=== PATIENT | male | born 1950 | race Caucasian/White ===

== ENCOUNTER 2017-08-23 05:43 | Day surgery (SDC) | payer MEDICARE ==
[~2017-08-23] VITALS: Ht 175.3 cm; Wt 82.6 kg
[~2017-08-23 05:43] MED LIST: ALBUTEROL PUFF; ASPI-1012 PO; BUDE10.2 IH; CARV12.511 PO; FLUTICASONE NASAL; LISI-617 PO; LISI2.5T2 PO; NAPR-1023 PO; OMEP20CA10 PO; [UNRECOGNIZED DRUG - OTHER] PUFF; albuterol PUFF
[2017-08-23 06:15] VITALS: BP 105/60
[2017-08-23] MEDS ORDERED: SODIUM CHLORIDE 0.9% 1000ML 1,000 ML IV ONE (06:21)
[2017-08-23] MEDS ORDERED: PROPOFOL 10 MG/ML 20ML VIAL IV ONE (06:53)
[2017-08-23] MEDS ORDERED: GLYCOPYRROLATE 0.2 MG/ML 5 ML VIAL ONE (06:53)
[2017-08-23] MEDS ORDERED: FENTANYL CITRATE PF 50 MCG/1 ML 2ML VIAL ONE (06:53)
== END 2017-08-23 08:38 ==
LOC: DAH 05:43
PROVIDERS: ATTEND Internal Medicine Gastroenterology
DX: K51.90 Ulcerative colitis, unspecified, without complications (principal); Z98.0 Intestinal bypass and anastomosis status; K21.9 Gastro-esophageal reflux disease without esophagitis; E78.5 Hyperlipidemia, unspecified; I10 Essential (primary) hypertension; I25.10 Atherosclerotic heart disease of native coronary artery without angina pectoris; Z98.890 Other specified postprocedural states; Z80.0 Family history of malignant neoplasm of digestive organs; Z82.49 Family history of ischemic heart disease and other diseases of the circulatory system; F17.210 Nicotine dependence, cigarettes, uncomplicated; Z87.19 Personal history of other diseases of the digestive system
CPT/HCPCS: 45380; 88305; 93005; A4606; J2704; J3010; J3490; J7030

== ENCOUNTER → 2018-09-11 | Outpatient (CLI) | payer MEDICARE ==
[~2018-09-11] MED LIST changes: -LISI2.5T2 PO
== END | disposition home or self-care (01) ==
LOC: SHCH 07:55
PROVIDERS: ATTEND Internal Medicine Cardiovascular Disease
DX: I51.7 Cardiomegaly (principal); I35.8 Other nonrheumatic aortic valve disorders
CPT/HCPCS: 93306

== ENCOUNTER → 2018-10-21 | Outpatient (CLI) | payer MEDICARE ==
[~2018-10-21] VITALS: Ht 180.3 cm; Wt 83.9 kg
[~2018-10-21] MED LIST changes: +REGADENOSON 0.4 MG/5 ML PF SYG IVP SCH
== END | disposition home or self-care (01) ==
LOC: SHCH 12:34
PROVIDERS: ATTEND Internal Medicine Cardiovascular Disease
DX: R06.09 Other forms of dyspnea (principal)
CPT/HCPCS: 78452; 93017; 96374; A9500 ×2; J2785

== ENCOUNTER → 2022-11-07 | Outpatient (CLI) | payer MEDICARE ==
[~2022-11-07] MED LIST changes: -LISI-617 PO; +LISI5TAB21 PO; -OMEP20CA10 PO; +OMEP20CA12 PO; -REGADENOSON 0.4 MG/5 ML PF SYG IVP SCH
== END | disposition home or self-care (01) ==
LOC: SHCH 09:04
PROVIDERS: ATTEND Internal Medicine Cardiovascular Disease
DX: I25.10 Atherosclerotic heart disease of native coronary artery without angina pectoris (principal); R09.89 Other specified symptoms and signs involving the circulatory and respiratory systems
CPT/HCPCS: 93880

== ENCOUNTER 2023-01-09 07:27 | Day surgery (SDC) | payer MEDICARE ==
[2023-01-07 12:56] VITALS: BP 138/70
[2023-01-07 12:57] LABS: BASOPHILS % (AUTO) 0.9 % (0.0-5.0); EOSINOPHILS % (AUTO) 5.2 % (0.0-8.0); HEMATOCRIT 39.2 % (42-54); LYMPHOCYTES % (AUTO) 30.8 % (21.0-51.0); MEAN CORPUSCULAR HEMOGLOBIN 34.8 pg (27.0-33.0); MEAN CORPUSCULAR HGB CONC 33.2 g/dL (32.0-36.0); MEAN CORPUSCULAR VOLUME 104.8 fL (79-99); NEUTROPHILS % (AUTO) 53.9 % (40.0-77.0); PLATELET COUNT (AUTO) 191 K/uL (130-400); RED BLOOD CELL COUNT(AUTO) 3.74 MIL/uL (4.50-6.20); RED CELL DISTRIBUTION WIDTH 13.6 % (11.0-15.5); WHITE BLOOD COUNT (AUTO) 9.4 K/uL (4.8-10.8)
[2023-01-07 13:12] LABS: INR 0.98 (0.85-1.15); PROTHROMBIN TIME 10.7 SEC (9.6-11.6)
[2023-01-07 13:13] LABS: PARTIAL THROMBOPLASTIN TIME 27.2 SEC (26.3-35.5)
[2023-01-07 13:27] LABS: B-TYPE NATRIURETIC PEPTIDE 39 pg/mL (0-100)
[2023-01-07 13:35] LABS: APPEARANCE,URINE CLEAR (CLEAR); BILIRUBIN,URINE NEGATIVE (NEGATIVE); COLOR,URINE LIGHT-YELLOW (YELLOW); GLUCOSE, URINE (UA) NEGATIVE (NEGATIVE); KETONES,URINE NEGATIVE (NEGATIVE); LEUKOCYTE ESTERASE ,URINE NEGATIVE Leu/uL (NEGATIVE); NITRATE,URINE NEGATIVE (NEGATIVE); OCCULT BLOOD,URINE NEGATIVE (NEGATIVE); PROTEIN,URINE NEGATIVE (NEGATIVE); UROBILINOGEN,URINE 0.2 mg/dL (0.2-1.0)
[2023-01-09] VITALS (9 sets, daily range): BP systolic 113–145; BP diastolic 61–79
[~2023-01-09] VITALS: Ht 180.3 cm; Wt 73.5 kg
[~2023-01-09 07:27] MED LIST changes: +ACET325T51 PO; +ALBU18HF7 IH; +ALBU2.5V2 IH; -ALBUTEROL PUFF; -BUDE10.2 IH; +CYAN100099 PO; +FLUT16H NASAL; +FLUT1BLS12 IH; -FLUTICASONE NASAL; +FOLIC ACID PO; +GLUC-29 PO; +LISI2.5T13 PO; +MONT-39 PO; +MULT-1367 PO; -NAPR-1023 PO; +NIAC500T7 PO; +NITR0.4T50 SL; -OMEP20CA12 PO; +OMEP20TA20 PO; +ROSU40TA21 PO; +TIOT18CA3 IH; +UBID100C45 PO; -[UNRECOGNIZED DRUG - OTHER] PUFF; -albuterol PUFF
[2023-01-09] MEDS ORDERED: 0.9%NACL 1000ML 1,000 ML IV ONE (09:33)
[2023-01-09] MEDS ORDERED: MIDAZOLAM HCL 1 MG/ML 2ML VIAL ONE (14:13)
[2023-01-09] MEDS ORDERED: LIDOCAINE HCL 400MG/20ML VIAL ONE (14:13)
[2023-01-09] MEDS ORDERED: IOHEXOL-350 75 ML VIAL IV ONE (14:14)
[2023-01-09] MEDS ORDERED: HEPARIN 10,000 UNIT/10ML (1,000 UNIT/ML) VIAL ONE (14:14)
[2023-01-09] MEDS ORDERED: NITROGLYCERIN 50MG VIAL ONE (14:14)
[2023-01-09] MEDS ORDERED: FENTANYL CITRATE PF 50 MCG/1 ML 2ML VIAL ONE (14:14)
[2023-01-09] MEDS ORDERED: BIVALIRUDIN 250 MG/VIAL IV ONE (14:20)
[2023-01-09] MEDS ORDERED: IOHEXOL-350 50ML VIAL IV ONE (14:43)
[2023-01-09] MEDS ORDERED: GLUCAGON 1MG KIT 1 MG ML IM PRN (15:00)
[2023-01-09] MEDS ORDERED: 0.9%NACL 1000ML 1,000 ML IV SCH (15:00)
[2023-01-09] MEDS ORDERED: DEXTROSE 50%-WATER 50 ML DISP.SYRIN IV PRN (15:00)
== END 2023-01-09 18:15 | disposition home or self-care (01) ==
LOC: DAH 07:27
PROVIDERS: ATTEND Internal Medicine Cardiovascular Disease
DX: I25.110 Atherosclerotic heart disease of native coronary artery with unstable angina pectoris (principal); I25.82 Chronic total occlusion of coronary artery; I25.5 Ischemic cardiomyopathy; I11.0 Hypertensive heart disease with heart failure; I50.32 Chronic diastolic (congestive) heart failure; F17.210 Nicotine dependence, cigarettes, uncomplicated; K21.9 Gastro-esophageal reflux disease without esophagitis; E78.49 Other hyperlipidemia; I25.2 Old myocardial infarction; Z98.890 Other specified postprocedural states; Z72.89 Other problems related to lifestyle; Z79.01 Long term (current) use of anticoagulants; Z82.49 Family history of ischemic heart disease and other diseases of the circulatory system; Z79.899 Other long term (current) drug therapy
CPT/HCPCS: 80048; 83880; 85025; 85610; 85730; 81003; 36415; 71045; 93005; 93458; C1894 ×2; C1760; J3010; J3490 ×2; J7030; J2250; J1644; Q9967 ×2; A4215; A4222; A4221; A4663; A4216; A4606; A4223 ×3; 99156; 99157; J0583

== ENCOUNTER → 2023-02-11 | Outpatient (CLI) | payer MEDICARE ==
[~2023-02-11] MED LIST changes: +AEC81 PO; -ASPI-1012 PO; -CARV12.511 PO; +FURO20TA6 PO; -LISI5TAB21 PO; +METO25 PO; -NITR0.4T50 SL
[2023-02-11 16:39] LABS: APPEARANCE,URINE CLEAR (CLEAR); BILIRUBIN,URINE NEGATIVE (NEGATIVE); COLOR,URINE YELLOW (YELLOW); GLUCOSE, URINE (UA) NEGATIVE (NEGATIVE); KETONES,URINE NEGATIVE (NEGATIVE); LEUKOCYTE ESTERASE ,URINE NEGATIVE Leu/uL (NEGATIVE); NITRATE,URINE NEGATIVE (NEGATIVE); OCCULT BLOOD,URINE NEGATIVE (NEGATIVE); PH,URINE 5.5 (5.0-8.0); PROTEIN,URINE 20 mg/dL (NEGATIVE); UROBILINOGEN,URINE 0.2 mg/dL (0.2-1.0)
[2023-02-11 16:43] LABS: BACTERIA,URINE RARE /HPF (None Seen); MUCUS,URINE FEW LPF (None Seen)
== END | disposition home or self-care (01) ==
LOC: LAB 11:31
PROVIDERS: ATTEND Internal Medicine Cardiovascular Disease
DX: R30.0 Dysuria (principal)
CPT/HCPCS: 81001; 87088

== ENCOUNTER → 2023-11-14 | Outpatient (CLI) | payer MEDICARE | END | disposition home or self-care (01) | LOC: SHCH 10:56 | PROVIDERS: ATTEND Internal Medicine Cardiovascular Disease | DX: I08.3 Combined rheumatic disorders of mitral, aortic and tricuspid valves (principal); I27.20 Pulmonary hypertension, unspecified; I11.9 Hypertensive heart disease without heart failure; E78.5 Hyperlipidemia, unspecified; Z95.1 Presence of aortocoronary bypass graft; Z95.810 Presence of automatic (implantable) cardiac defibrillator | CPT/HCPCS: 93306 ==

== ENCOUNTER 2024-11-04 06:21 | Day surgery (SDC) | payer MEDICARE ==
[~2024-11-04] VITALS: Ht 177.8 cm; Wt 66.2 kg
[2024-11-04] VITALS (11 sets, daily range): BP systolic 85–99; BP diastolic 50–60; PULSE 68–75; RESP 14–16; TEMP 97.3–98.2
[~2024-11-04 06:21] MED LIST changes: -ACET325T51 PO; -ALBU2.5V2 IH; -CYAN100099 PO; +EMPA25TA PO; -FURO20TA6 PO; +FURO40TA5 PO; -LISI2.5T13 PO; +METO-408 PO; -METO25 PO; -NIAC500T7 PO; -ROSU40TA21 PO; +ROSU40TA88 PO; +SACU1TAB7 PO
[2024-11-04] MEDS: 0.9%NACL 1000ML 1,000 ML IV ONE (07:32)
[2024-11-04] MEDS ORDERED: proPOFol 10 MG/ML 20ML VIAL IV ONE (09:43)
== END 2024-11-04 11:10 | disposition home or self-care (01) ==
LOC: DAH 06:21 → ENDO 06:21
PROVIDERS: ATTEND Internal Medicine Gastroenterology
DX: K22.70 Barrett's esophagus without dysplasia (principal); K44.9 Diaphragmatic hernia without obstruction or gangrene; K29.60 Other gastritis without bleeding; Z79.899 Other long term (current) drug therapy; I10 Essential (primary) hypertension; Z80.0 Family history of malignant neoplasm of digestive organs; Z98.890 Other specified postprocedural states
CPT/HCPCS: 43239; J7030 ×2; J2704; A4620; A4215; A4223; A7002; A4222; A4221; A4663; A4606; J3490